=== PATIENT | female | born 1985 | race Two or more races ===

== ENCOUNTER 2016-06-04 17:56 | Emergency (ER) | payer OTHER ==
[~2016-06-04] VITALS: Ht 160 cm; Wt 68.0 kg
[2016-06-04] MEDS ORDERED: IPRATRPIUM/ALBUTEROL 0.5/2.5MG 3 ML NEBU. NEB ONE ×2 (19:15)
[2016-06-04] MEDS ORDERED: PREDNISONE 10 MG TABLET PO ONE (19:15)
[2016-06-04] MEDS ORDERED: PROAIR HFA8.5 GM INH (20:04)
[2016-06-04] MEDS ORDERED: PRED50TA PO (20:04)
--- NOTE | 2016-06-04 20:04 | PHYS DOC ---
Past Medical History Past Medical History: Asthma Past Surgical History: No Surgical History Alcohol Use: None Drug Use: None Adult General Chief Complaint Chief Complaint: Congestion HPI HPI This is a 30-year-old female is an estimated 13 weeks gestation by last menstrual period who is having significant shortness of breath and sensation of chest congestion and tightness. Patient does have history of asthma but states it's usually well controlled she has not been using an inhaler because she does not have one. She denies any significant health problems. She denies any chest pain. Pt sounds congested when she speaks. She denies any abdominal pain or vaginal bleeding. She denies any dysuria or hematuria. She is speaking in complete sentences and satting near 97-98% on room air and in no acute distress. Review of Systems Review of Systems Constitutional: Denies fever or chills [] Eyes: Denies change in visual acuity, redness, or eye pain [] HENT: Denies nasal congestion or sore throat [] Respiratory: Denies cough, has shortness of breath [] Cardiovascular: No additional information not addressed in HPI [] GI: Denies abdominal pain, nausea, vomiting, bloody stools or diarrhea [] : Denies dysuria or hematuria [] Musculoskeletal: Denies back pain or joint pain [] Integument: Denies rash or skin lesions [] Neurologic: Denies headache, focal weakness or sensory changes [] Endocrine: Denies polyuria or polydipsia [] Current Medications Current Medications Current Medications Medications (Trade) Dose Ordered Sig/González Start Time Stop Time Status Last Admin Dose Admin Albuterol/ Ipratropium (Duoneb) 3 ml 1X ONCE 06/04/16 19:15 06/04/16 19:16 DC 06/04/16 19:26 3 ML Prednisone (Prednisone) 50 mg 1X ONCE 06/04/16 19:15 06/04/16 19:16 DC 06/04/16 19:22 50 MG Allergies Allergies Allergies Coded Allergies Type Severity Reaction Last Updated Verified No Known Drug Allergies 06/04/16 No Physical Exam Physical Exam Constitutional: Well developed, well nourished, no acute distress, non-toxic appearance. [] HENT: Normocephalic, atraumatic, bilateral external ears normal, oropharynx moist, no oral exudates, nose normal. [] Eyes: PERRLA, EOMI, conjunctiva normal, no discharge. [] Neck: Normal range of motion, no tenderness, supple, no stridor. [] Cardiovascular:Heart rate regular rhythm, no murmur [] Lungs & Thorax: Expiratory wheezing bilaterally, no acute respiratory distress [] Abdomen: Bowel sounds normal, soft, no tenderness, no masses, no pulsatile masses. [] Skin: Warm, dry, no erythema, no rash. [] Back: No tenderness, no CVA tenderness. [] Extremities: No tenderness, no cyanosis, no clubbing, ROM intact, no edema. [] Neurologic: Alert and oriented X 3, normal motor function, normal sensory function, no focal deficits noted. [] Psychologic: Affect normal, judgement normal, mood normal. [] Current Patient Data Vital Signs Vital Signs Date Time Temp Pulse Resp B/P Pulse Ox O2 Delivery O2 Flow Rate FiO2 06/04/16 20:10 79 113/57 100 Room Air 06/04/16 18:14 98.4 24 98.4 EKG EKG EKG as interpreted by me shows sinus rhythm with a rate of 85 bpm. There are no acute ischemic findings on this EKG. Intervals are normal. This EKG does not meet STEMI criteria. Radiology/Procedures Radiology/Procedures [] Course & Med Decision Making Course & Med Decision Making Pertinent Labs and Imaging studies reviewed. (See chart for details) 30-year-old females likely having a asthma exacerbation and . Patient was given [id number] DuoNeb treatments and a dose of prednisone and upon my reassessment, feels near completely back to her normal baseline and feels very much improved. Patient always maintained saturations in the near 98% on room air range before and after treatments. There is no indication to perform a chest x-ray this time. I counseled her that her may be worsening her history of asthma and will be driving her a albuterol inhaler and a course of prednisone. I stressed that she will need to follow closely for her asthma symptoms and to continue to use her inhaler as instructed. Dragon Disclaimer Dragon Disclaimer This electronic medical record was generated, in whole or in part, using a voice recognition dictation system. Departure Departure Impression: Primary Impression: Asthma exacerbation Additional Impression: Disposition: HOME, SELF-CARE Admitting Physician: Other Condition: STABLE Referrals: NO PCP (PCP) Patient Instructions: Asthma, Adult, [id number] Additional Instructions: Please use your inhaler as prescribed. Take your steroids as prescribed. Return to the ER if you develop any worsening of your symptoms. Follow up with your primary doctor in the next 2-3 days for your symptoms. Scripts Albuterol Sulfate (Proair Hfa Inhaler)8.5 Gm [id number] Puff INH PRN Q6HRS PRN SHORTNESS OF BREATH #1 INHALER Ref 0 Prov:MODE MATAMOROS DO 06/04/16 Prednisone 50 Mg Tablet1 Tab PO DAILY #5 TAB Prov:MODE MATAMOROS DO 06/04/16 Problem Qualifiers MODE MATAMOROS DO Jun 04, 2016 20:04
[2016-06-04 20:10] VITALS: BP 113/57
--- NOTE | 2016-06-05 09:11 | EKG ---
[facility] [address] [place] [address] Test Date: 2016-06-04 Test Time: 18:25:40 Pat Name: DAMION BARRETT Department: Room: Gender: F [employer] [place]: : 1985 Requested By: MODE MATAMOROS Order Number: [id number] Reading MD: Roshni Thomas Measurements Intervals [place] Rate: 85 P: 50 [place]: 180 QRS: 66 QRSD: 72 T: 23 QT: 360 QTc: 434 Interpretive Statements SINUS RHYTHM NORMAL EKG RI6.01 No previous ECG available for comparison Electronically Signed On 06-05-2016 20:00:33 CDT by Roshni Thomas
== END 2016-06-04 20:15 | disposition home or self-care (01) ==
LOC: ER 17:56
DX: O99.511 Diseases of the respiratory system complicating pregnancy, first trimester (principal); J45.901 Unspecified asthma with (acute) exacerbation; Z3A.13 13 weeks gestation of pregnancy
CPT/HCPCS: 93005; 94640; 99284; J7512; J7620